=== PATIENT | female | born 1975 | race Caucasian/White ===

== ENCOUNTER → 2018-10-12 | Outpatient (CLI) | payer OTHER | LOC: GMAE 18:16 | PROVIDERS: ATTEND Family Medicine | DX: D50.8 Other iron deficiency anemias (principal); E53.8 Deficiency of other specified B group vitamins; E78.5 Hyperlipidemia, unspecified; J02.9 Acute pharyngitis, unspecified; R53.82 Chronic fatigue, unspecified ==

== ENCOUNTER → 2019-07-19 | Outpatient (CLI) | payer OTHER | LOC: GMAE 17:04 | PROVIDERS: ATTEND Family Medicine | DX: E03.9 Hypothyroidism, unspecified (principal) ==

== ENCOUNTER → 2019-10-19 | Outpatient (CLI) | payer OTHER | LOC: GMAE 17:26 | PROVIDERS: ATTEND Family Medicine | DX: M46.40 Discitis, unspecified, site unspecified (principal); E03.9 Hypothyroidism, unspecified ==

== ENCOUNTER → 2020-02-29 | Outpatient (CLI) | payer OTHER | DX: R07.9 Chest pain, unspecified (principal) ==

== ENCOUNTER → 2020-10-05 | Outpatient (CLI) | payer OTHER | LOC: GMAE 10:46 | PROVIDERS: ATTEND Family Medicine | DX: Z00.00 Encounter for general adult medical examination without abnormal findings (principal) ==